=== PATIENT | male | born 1985 | race Caucasian/White ===

== ENCOUNTER 2017-12-28 15:01 | Emergency (ER) | payer BC, OTHER ==
[2017-12-28 15:14] VITALS: BP 109/84
[2017-12-28] MEDS ORDERED: Alum Hydrox/Mag Hydrox/Simeth 30 ML, Lidocaine 2% 15 ML PO ONE ×2 (15:52)
--- NOTE | 2017-12-28 15:55 | EDM.PDOC ---
ED HPI GENERAL MEDICAL PROBLEM - General Chief Complaint: Gastrointestinal Problem Stated Complaint: VOMITING BLOOD Time Seen by Provider: 12/28/17 15:39 Source of Information: Reports: Patient History Limitations: Reports: No Limitations - History of Present Illness INITIAL COMMENTS - FREE TEXT/NARRATIVE: Patient is a 32-year-old male with a history of GERD and also Crohn's disease who presents to the ED complaining of chest discomfort and increased acid reflux. States 2 nights ago had worsening acid reflux production. States he was coughing up acid and blood with in the acid. Denies vomiting. At times he felt like it was hard to breathe secondary to the acid reflux. Patient ate [place] food that evening prior to worsening symptoms. Denies any alcohol use at that point. He continues to take Protonix 20 mg twice a day with some relief. He did contact his GI specialist in [place] and was instructed to come to the ED to have a EKG obtained. He does have a history of Crohn's disease and has frequent episodes of blood within his stool. States had a little increase in blood noted approximately one week ago that has subsided. He has no abdominal pain. He is passing stool with no issues. Has history of GI bleed 2011 secondary to Crohn's disease and required hospitalization. Otherwise no other additional symptoms as such. He has a history of gastric ulcer and/or H. pylori. He does not take ibuprofen or Aleve for any discomfort. Has been utilizing Tylenol for headache symptoms. There is no first degree relative with history of heart disease. When addressing patient's caffeine use. Patient consumes one cup of coffee, one energy drink daily, and 1 L of pop daily. Denies any chocolate use and frequently does not eat a spicy foods. He has no history of TB. throat/upper esophogus Pain Score (Numeric/FACES): 2 - Related Data Allergies Allergy/AdvReac Type Severity Reaction Status Date / Time No Known Allergies Allergy Verified 12/28/17 15:14 Home Meds: Home Meds Pantoprazole Sodium 40 mg PO BID 07/20/14 [History] Certolizumab Pegol [Cimzia] 400 mg SQ ASDIRECTED 12/28/17 [History] Past Medical History Gastrointestinal History: Reports: GERD, Other (See Below) Other Gastrointestinal History: crohn's - Past Surgical History GI Surgical History: Reports: Appendectomy, EGD Social & Family History - Family History Family Medical History: Noncontributory - Tobacco Use Smoking Status *Q: Never Smoker - Caffeine Use Caffeine Use: Reports: Coffee, Energy Drinks, Soda - Recreational Drug Use Recreational Drug Use: No ED ROS GENERAL - Review of Systems Review Of Systems: See Below Constitutional: Reports: Decreased Appetite. Denies: Fever, Malaise, Weakness HEENT: Reports: No Symptoms Respiratory: Reports: Cough, Hemoptysis. Denies: Shortness of Breath, Wheezing , Pleuritic Chest Pain, Sputum Cardiovascular: Reports: Chest Pain. Denies: Dyspnea on Exertion, Palpitations , PND, Syncope GI/Abdominal: Reports: Decreased Appetite. Denies: Abdominal Pain, Black Stool , Bloody Stool, Constipation, Diarrhea, Difficulty Swallowing, Hematemesis, Hematochezia, Melena, Nausea, Vomiting Musculoskeletal: Reports: No Symptoms Neurological: Reports: No Symptoms ED EXAM, GENERAL - Physical Exam Exam: See Below Exam Limited By: No Limitations General Appearance: Alert, WD/WN, No Apparent Distress Ears: Hearing Grossly Normal Nose: Normal Inspection Throat/Mouth: Normal Voice, No Airway Compromise Head: Atraumatic, Normocephalic Neck: Normal Inspection, Supple Respiratory/Chest: No Respiratory Distress, Lungs Clear, Normal Breath Sounds, No Accessory Muscle Use, Chest Non-Tender Cardiovascular: Normal Peripheral Pulses, Regular Rate, Rhythm, No Murmur Peripheral Pulses: 4+: Radial (R) GI/Abdominal: Normal Bowel Sounds, Soft, Non-Tender, No Organomegaly, No Distention Back Exam: Normal Inspection Neurological: Alert, Oriented, CN II-XII Intact, Normal Cognition, No Motor/ Sensory Deficits Psychiatric: Normal Affect, Normal Mood Skin Exam: Warm, Dry, Intact, Normal Color, No Rash Course - Vital Signs Last Recorded V/S: Last Vital Signs Temp 98.1 F 12/28/17 15:06 Pulse 72 12/28/17 15:06 Resp 2 L 12/28/17 15:06 BP 109/84 12/28/17 15:06 Pulse Ox 96 12/28/17 15:06 - Orders/Labs/Meds Orders: Active Orders 24 hr Category Date Time Status EKG 12 Lead [EKG Documentation Completion] [RC] STAT Care 12/28/17 15:52 Active Labs: Laboratory Tests 12/28/17 12/28/17 12/28/17 Range/Units 16:05 16:05 16:05 WBC 8.32 (4.23-9.07) K/mm3 RBC 5.13 (4.63-6.08) M/mm3 Hgb 15.6 (13.7-17.5) gm/L Hct 45.8 (40.1-51.0) % MCV 89.3 (79.0-92.2) fl MCH 30.4 (25.7-32.2) pg MCHC 34.1 (32.2-35.5) g/dl RDW Std Deviation 44.5 H (35.1-43.9) fL Plt Count 249 (163-337) K/mm3 MPV 11.6 (9.4-12.3) fl Neutrophils % (Manual) 35 L (40-60) % Band Neutrophils % 0 (0-10) % Lymphocytes % (Manual) 52 H (20-40) % Atypical Lymphs % 0 % Monocytes % (Manual) 9 (2-10) % Eosinophils % (Manual) 1 (0.8-7.0) % Basophils % (Manual) 3 H (0.2-1.2) Platelet Estimate Adequate RBC Morph Comment Normal PT 11.6 (9.5-12.1) SECONDS INR 1.07 APTT 32 H (24-31) SECONDS Sodium 141 (136-145) mEq/L Potassium 4.2 (3.5-5.1) mEq/L Chloride 105 (98-107) mEq/L Carbon Dioxide 29 (21-32) mEq/L Anion Gap 11.2 (5-15) BUN 14 (7-18) mg/dL Creatinine 1.3 (0.7-1.3) mg/dL Est Cr Clr Drug Dosing 95.69 mL/min Estimated GFR (MDRD) > 60 (>60) mL/min BUN/Creatinine Ratio 10.8 L (14-18) Glucose 82 (74-106) mg/dL Calcium 9.4 (8.5-10.1) mg/dL Total Bilirubin 0.6 (0.2-1.0) mg/dL AST 20 (15-37) U/L ALT 34 (16-63) U/L Alkaline Phosphatase 78 (46-116) U/L C-Reactive Protein 1.8 H* (<1.0) mg/dL Total Protein 8.2 (6.4-8.2) g/dl Albumin 4.1 (3.4-5.0) g/dl Globulin 4.1 gm/dL Albumin/Globulin Ratio 1.0 (1-2) Lipase 117 (73-393) U/L TSH 3rd Generation (0.358-3.74) uIU/mL 12/28/17 Range/Units 16:05 WBC (4.23-9.07) K/mm3 RBC (4.63-6.08) M/mm3 Hgb (13.7-17.5) gm/L Hct (40.1-51.0) % MCV (79.0-92.2) fl MCH (25.7-32.2) pg MCHC (32.2-35.5) g/dl RDW Std Deviation (35.1-43.9) fL Plt Count (163-337) K/mm3 MPV (9.4-12.3) fl Neutrophils % (Manual) (40-60) % Band Neutrophils % (0-10) % Lymphocytes % (Manual) (20-40) % Atypical Lymphs % % Monocytes % (Manual) (2-10) % Eosinophils % (Manual) (0.8-7.0) % Basophils % (Manual) (0.2-1.2) Platelet Estimate RBC Morph Comment PT (9.5-12.1) SECONDS INR APTT (24-31) SECONDS Sodium (136-145) mEq/L Potassium (3.5-5.1) mEq/L Chloride (98-107) mEq/L Carbon Dioxide (21-32) mEq/L Anion Gap (5-15) BUN (7-18) mg/dL Creatinine (0.7-1.3) mg/dL Est Cr Clr Drug Dosing mL/min Estimated GFR (MDRD) (>60) mL/min BUN/Creatinine Ratio (14-18) Glucose (74-106) mg/dL Calcium (8.5-10.1) mg/dL Total Bilirubin (0.2-1.0) mg/dL AST (15-37) U/L ALT (16-63) U/L Alkaline Phosphatase (46-116) U/L C-Reactive Protein (<1.0) mg/dL Total Protein (6.4-8.2) g/dl Albumin (3.4-5.0) g/dl Globulin gm/dL Albumin/Globulin Ratio (1-2) Lipase (73-393) U/L TSH 3rd Generation 1.297 (0.358-3.74) uIU/mL Meds: Medications Discontinued Medications Generic Name Dose Route Start Last Admin Trade Name Freq PRN Reason Stop Dose Admin Al Hydroxide/Mg Hydroxide 30 0 ml 12/28/17 15:52 12/28/17 16:08 ml/ Lidocaine HCl 15 ml PO 12/28/17 15:53 45 ml ONETIME ONE Administration - Re-Assessments/Exams Free Text/Narrative Re-Assessment/Exam: No IV required at this time. Ordered by mouth GI cocktail. Patient is already on Protonix. Initial lab studies will include: CBC, chem 14, CRP, lipase, coag studies, chest x-ray one view, and also EKG. EKG: Sinus rhythm. [address] changes noted. CXR: Chest: Portable view of the chest was obtained. Comparison: No prior chest x-ray. Heart size and mediastinum are normal. Equivocal nodule within the right upper chest is seen. Lungs otherwise are clear. Bony structures are unremarkable. Impression: 1. Possible right upper lung nodule. Noncontrast chest CT recommended to further evaluate. 2. Nothing acute is otherwise seen on frontal chest x-ray. Labs: CBC essentially normal. APTT is is mildly elevated at 32. INR is 1.07 which is mildly abnormal as well. Chem 14 essentially normal. CRP 1.8. Lipase 117. 12/28/17 18:15 CT chest Technique: Multiple axial sections through the chest were obtained. Comparison: Prior chest x-ray performed earlier in the same day (3:57 PM). Findings: Nodular density within the upper right chest seen on plain film exam does not represent a pulmonary nodule on current CT exam. No corresponding finding is seen on on this study. Mild patchy increased density is seen within the lingula. Lungs otherwise are clear. No pneumothorax is seen. No pleural effusions are noted. Mediastinum and hilar regions show no adenopathy or mass. Small hiatal hernia is seen. Bone window settings were reviewed which appear within normal limits for the patient's age. Impression: 1. No pulmonary nodule is seen as suggested on chest x-ray. 2. Slight patchy density within the lingula. Findings could represent minimal bronchopneumonia if patient has infectious symptoms. Findings could otherwise be chronic and due to scarring. Mild atelectasis is also within the differential. 3. Small hiatal hernia. Patient states symptoms have improved. Has no complaints at this time. Will discharge patient home with instuctions as documented. Patient states has chronic fatigue thus is why he drinks alot of caffeine. Denies being depressed. Will order TSH. If abnormal he will be notified. TSH WNL. Departure - Departure Time of Disposition: 18:35 Disposition: Home, Self-Care 01 Condition: Good Clinical Impression: Acid reflux Qualifiers: Esophagitis presence: esophagitis presence not specified Qualified Code(s): K21.9 - Gastro-esophageal reflux disease without esophagitis Instructions: Food Choices for Gastroesophageal Reflux Disease, Adult, Abdominal Pain, Adult, [id number] Referrals: Krista Marques PA-C [Ordering Only Provider] - Forms: ED Department Discharge Additional Instructions: Continue taking all your home medications as prescribed. May utilize Maalox intermittently for discomfort following manufactures instructions. Take Zantac 150 milligrams in the evening time prior to going to bed. Do not eat or drink within 4 hours of going to bed. Refrain from any spicy foods, caffeinated beverages, coffee, and or any other aggravating foods or drinks. See your PCP in of this week or first part of next week for reevaluation. Followup with GI provider to evaluate for EGD need. Return to the ED if develop any new or worsening symptoms. Continue taking Tylenol as needed for discomfort. - My Orders Last 24 Hours: My Active Orders 12/28/17 15:52 EKG 12 Lead [EKG Documentation Completion] [RC] STAT - Assessment/Plan Last 24 Hours: My Active Orders 12/28/17 15:52 EKG 12 Lead [EKG Documentation Completion] [RC] STAT
--- NOTE | 2017-12-28 16:20 | CR ---
Chest: Portable view of the chest was obtained. Comparison: No prior chest x-ray. Heart size and mediastinum are normal. Equivocal nodule within the right upper chest is seen. Lungs otherwise are clear. Bony structures are unremarkable. Impression: 1. Possible right upper lung nodule. Noncontrast chest CT recommended to further evaluate. 2. Nothing acute is otherwise seen on frontal chest x-ray. Diagnostic code #9
--- NOTE | 2017-12-28 18:07 | CT ---
CT chest Technique: Multiple axial sections through the chest were obtained. Comparison: Prior chest x-ray performed earlier in the same day (3:57 PM). Findings: Nodular density within the upper right chest seen on plain film exam does not represent a pulmonary nodule on current CT exam. No corresponding finding is seen on on this study. Mild patchy increased density is seen within the lingula. Lungs otherwise are clear. No pneumothorax is seen. No pleural effusions are noted. Mediastinum and hilar regions show no adenopathy or mass. Small hiatal hernia is seen. Bone window settings were reviewed which appear within normal limits for the patient's age. Impression: 1. No pulmonary nodule is seen as suggested on chest x-ray. 2. Slight patchy density within the lingula. Findings could represent minimal bronchopneumonia if patient has infectious symptoms. Findings could otherwise be chronic and due to scarring. Mild atelectasis is also within the differential. 3. Small hiatal hernia. Diagnostic code #3
== END 2017-12-28 18:42 | disposition home or self-care (01) ==
LOC: JD.ED 15:01
DX: K21.9 Gastro-esophageal reflux disease without esophagitis (principal); K44.9 Diaphragmatic hernia without obstruction or gangrene
CPT/HCPCS: 36415; 71045; 71250; 80053; 83690; 84443; 85025; 85610; 85730; 86140; 93005; 99285; A9270; 99284